=== PATIENT | female | born 1960 | race Caucasian/White ===

== ENCOUNTER 2016-10-12 11:27 | Day surgery (SDC) | payer BC ==
[~2016-10-12] VITALS: Ht 170.2 cm; Wt 77.3 kg
[2016-10-12 12:11] VITALS: BP 112/65; PULSE 73; TEMP 98.5
[2016-10-12] MEDS ORDERED: MULTI VITAMINS1 TAB PO (12:23)
[2016-10-12] MEDS ORDERED: VENLAFAXINE225 MG PO (12:23)
[2016-10-12] MEDS ORDERED: PEPCID40 MG PO (12:24)
[2016-10-12] MEDS ORDERED: HYZAAR 12.5 MG-1 TAB PO (12:24)
[2016-10-12] MEDS ORDERED: CLIMARA 0.1 PATCH.WK TD (12:25)
[2016-10-12] MEDS ORDERED: NAPROSYN500 MG PO (12:25)
[2016-10-12 14:46] VITALS: BP 104/47; PULSE 91; TEMP 97.6
[2016-10-12 15:00] VITALS: BP 105/70; PULSE 67
[2016-10-12] MEDS ORDERED: NORCO 325 MG-51 TAB PO (15:09)
[2016-10-12] MEDS ORDERED: COLACE 100100 MG/CAP PO (15:09)
[2016-10-12] MEDS ORDERED: ZOFRAN ODT4 MG PO (15:10)
[2016-10-12 15:15] VITALS: BP 106/66; PULSE 68
== END 2016-10-12 15:45 | disposition home or self-care (01) ==
LOC: SDCO 11:27
DX: M65.331 Trigger finger, right middle finger (principal); F17.200 Nicotine dependence, unspecified, uncomplicated
CPT/HCPCS: J0690; J2704; J3010; J7120

== ENCOUNTER → 2018-08-23 | Outpatient (CLI) | payer OTHER ==
[~2018-08-23] MED LIST: CLIMARA 0.1 PATCH.WK TD; COLACE 100100 MG/CAP PO; HYZAAR 12.5 MG-1 TAB PO; MULTI VITAMINS1 TAB PO; NAPROSYN500 MG PO; NORCO 325 MG-51 TAB PO; PEPCID40 MG PO; VENLAFAXINE225 MG PO; ZOFRAN ODT4 MG PO
== END ==
LOC: COL.RAD 14:45
DX: M48.061 Spinal stenosis, lumbar region without neurogenic claudication (principal); M50.20 Other cervical disc displacement, unspecified cervical region

== ENCOUNTER → 2019-02-27 | Outpatient (CLI) | payer OTHER | LOC: MHCPAIN 13:34 | DX: G89.29 Other chronic pain (principal); M54.12 Radiculopathy, cervical region; M47.812 Spondylosis without myelopathy or radiculopathy, cervical region; R51 Headache | CPT/HCPCS: G0463 ==

== ENCOUNTER → 2019-03-01 | Outpatient (CLI) | payer OTHER | LOC: COL.RAD 14:45 | DX: M51.36 Other intervertebral disc degeneration, lumbar region (principal); M51.26 Other intervertebral disc displacement, lumbar region ==

== ENCOUNTER 2019-03-13 13:45 | Outpatient (RCR) | payer OTHER | END 2019-05-07 09:52 | disposition home or self-care (01) | LOC: WSC 13:45 | DX: M51.36 Other intervertebral disc degeneration, lumbar region (principal) ==

== ENCOUNTER → 2019-08-21 | Outpatient (CLI) | payer OTHER | LOC: COL.RAD 08-06 13:15 | DX: M48.02 Spinal stenosis, cervical region (principal) ==